=== PATIENT | female | born 1965 | race American Indian/Alaskan Native ===

== ENCOUNTER 2017-02-18 08:52 | Emergency (ER) | payer MEDICAID ==
[2017-02-18] MEDS ORDERED: NACL 0.9% 1000 ML 1,000 ML IV ONE (11:57)
[2017-02-18] MEDS ORDERED: PEPCID IV ONE (11:57)
[2017-02-18] MEDS ORDERED: BENADRYL IV ONE (11:57)
--- NOTE | 2017-02-18 12:05 | Emergency Department Report ---
- General Chief complaint: Skin Rash Stated complaint: INSECT BITE, RASH ON BODY Time Seen by Provider: 02/18/17 11:53 Source: patient Mode of arrival: Ambulatory Limitations: No Limitations - History of Present Illness Initial comments: This is a 51-year-old female nontoxic, well nourished in appearance, no acute signs of distress presents to the ED complaining of itching with rash with whelps. Patient stated last night she was outside and her brother's house and the back and visualized mosquitoes that bit her to the extremity but denies any rash or itching. Parents. They stated that night he developed severe rash and whelps. Patient patient had a similar episode last year and received medical treatment in the ED but isn't aware what she received that has subsided. Patient denies any shortness of breath or difficulty breathing. Denies drooling. Denies chest pain, shortness of breath, fever, chills, nausea, vomiting, numbness or tingling. Patient denies any joint swelling or joint redness. Patient denies any allergies. Past Medical history includes hypertension and asthma. Patient's daughter Tamera is currently present at bedside as the initial draw the patient home after discharge. MD complaint: rash, insect bite/sting -: Gradual, days(s) (1) Tetanus Up to Date: yes Location: generalized Severity: mild Severity scale (0 -10): 7 Quality: burning, other (itching) Consistency: constant Improves with: none Worsens with: none Context: none Associated symptoms: denies other symptoms Treatments Prior to Arrival: none - Related Data Home Medications Medication Instructions Recorded Confirmed Last Taken ALBUTEROL NEB's [Proventil 0.083%] 2.5 mg IH TID PRN 04/25/13 04/25/13 04/25/13 20:00 Albuterol Sulfate [Albuterol 0.63%] 0.63 mg IH TID PRN 04/25/13 04/25/13 20:00 Hydrochlorothiazide [Hctz] 12.5 mg PO QDAY 04/25/13 04/25/13 04/25/13 20:00 amLODIPine [Norvasc] 5 mg PO DAILY 04/25/13 04/25/13 04/25/13 20:00 Previous Rx's Medication Instructions Recorded Last Taken Type Guaifenesin/Codeine Phosphate 10 ml PO Q4-6H PRN #150 ml 04/26/13 Unknown Rx [Guaifenesin-Codeine Syrup] Hydrocodone Bit/Acetaminophen 1 each PO Q4-6H PRN #10 tablet 04/26/13 Unknown Rx [Lortab 5-500 Tablet] Ibuprofen [Motrin] 800 mg PO TID PRN #20 tablet 04/26/13 Unknown Rx oxyCODONE /ACETAMINOPHEN [Percocet 1 tab PO Q6HR PRN #20 tablet 06/22/14 Unknown Rx 5/325] ALBUTEROL Inhaler [Proair] 2 puff IH QID PRN #1 inhalation 12/08/15 Unknown Rx Prednisone [predniSONE 10 mg 10 mg PO .TAPER #1 tab.ds.pk 12/08/15 Unknown Rx (6-Day Pack, 21 Tabs)] diphenhydrAMINE [Benadryl CAP] 25 mg PO Q6HR PRN #20 capsule 02/18/17 Unknown Rx predniSONE [Deltasone] 20 mg PO BID #10 tab 02/18/17 Unknown Rx Allergies Allergy/AdvReac Type Severity Reaction Status Date / Time No Known Allergies Allergy Verified 06/21/14 18:01 Abscess Boil HPI - HPI Chief Complaint: Skin Rash Stated Complaint: INSECT BITE, RASH ON BODY Time Seen by Provider: 02/18/17 11:53 Home Medications: Home Medications Medication Instructions Recorded Confirmed Last Taken ALBUTEROL NEB's [Proventil 0.083%] 2.5 mg IH TID PRN 04/25/13 04/25/13 04/25/13 20:00 Albuterol Sulfate [Albuterol 0.63%] 0.63 mg IH TID PRN 04/25/13 04/25/13 20:00 Hydrochlorothiazide [Hctz] 12.5 mg PO QDAY 04/25/13 04/25/13 04/25/13 20:00 amLODIPine [Norvasc] 5 mg PO DAILY 04/25/13 04/25/13 04/25/13 20:00 Previous Rx's Medication Instructions Recorded Last Taken Type Guaifenesin/Codeine Phosphate 10 ml PO Q4-6H PRN #150 ml 04/26/13 Unknown Rx [Guaifenesin-Codeine Syrup] Hydrocodone Bit/Acetaminophen 1 each PO Q4-6H PRN #10 tablet 04/26/13 Unknown Rx [Lortab 5-500 Tablet] Ibuprofen [Motrin] 800 mg PO TID PRN #20 tablet 04/26/13 Unknown Rx oxyCODONE /ACETAMINOPHEN [Percocet 1 tab PO Q6HR PRN #20 tablet 06/22/14 Unknown Rx 5/325] ALBUTEROL Inhaler [Proair] 2 puff IH QID PRN #1 inhalation 12/08/15 Unknown Rx Prednisone [predniSONE 10 mg 10 mg PO .TAPER #1 tab.ds.pk 12/08/15 Unknown Rx (6-Day Pack, 21 Tabs)] diphenhydrAMINE [Benadryl CAP] 25 mg PO Q6HR PRN #20 capsule 02/18/17 Unknown Rx predniSONE [Deltasone] 20 mg PO BID #10 tab 02/18/17 Unknown Rx Allergies/Adverse Reactions: Allergies Allergy/AdvReac Type Severity Reaction Status Date / Time No Known Allergies Allergy Verified 06/21/14 18:01 ED Review of Systems ROS: Stated complaint: INSECT BITE, RASH ON BODY Other details as noted in HPI Constitutional: denies: chills, fever Eyes: denies: eye pain, eye discharge, vision change ENT: denies: ear pain, throat pain Respiratory: denies: cough, shortness of breath, wheezing Cardiovascular: denies: chest pain, palpitations Endocrine: no symptoms reported Gastrointestinal: denies: abdominal pain, nausea, diarrhea Genitourinary: denies: urgency, dysuria, discharge Musculoskeletal: denies: back pain, joint swelling, arthralgia Skin: rash, pruritus. denies: lesions Neurological: denies: headache, weakness, paresthesias Psychiatric: denies: anxiety, depression Hematological/Lymphatic: denies: easy bleeding, easy bruising ED Past Medical Hx - Past Medical History Previous Medical History?: Yes Hx Hypertension: Yes Hx Asthma: Yes - Surgical History Past Surgical History?: Yes Hx Appendectomy: Yes Additional Surgical History: back surgery ovarian cyst. PARTIAL HYSTERECTOMY - Social History Smoking Status: Never Smoker Substance Use Type: None - Medications Home Medications: Home Medications Medication Instructions Recorded Confirmed Last Taken Type ALBUTEROL NEB's [Proventil 0.083%] 2.5 mg IH TID PRN 04/25/13 04/25/13 04/25/13 20:00 History Albuterol Sulfate [Albuterol 0.63%] 0.63 mg IH TID PRN 04/25/13 04/25/13 20:00 History Hydrochlorothiazide [Hctz] 12.5 mg PO QDAY 04/25/13 04/25/13 04/25/13 20:00 History amLODIPine [Norvasc] 5 mg PO DAILY 04/25/13 04/25/13 04/25/13 20:00 History Guaifenesin/Codeine Phosphate 10 ml PO Q4-6H PRN #150 ml 04/26/13 Unknown Rx [Guaifenesin-Codeine Syrup] Hydrocodone Bit/Acetaminophen 1 each PO Q4-6H PRN #10 tablet 04/26/13 Unknown Rx [Lortab 5-500 Tablet] Ibuprofen [Motrin] 800 mg PO TID PRN #20 tablet 04/26/13 Unknown Rx oxyCODONE /ACETAMINOPHEN [Percocet 1 tab PO Q6HR PRN #20 tablet 06/22/14 Unknown Rx 5/325] ALBUTEROL Inhaler [Proair] 2 puff IH QID PRN #1 inhalation 12/08/15 Unknown Rx Prednisone [predniSONE 10 mg 10 mg PO .TAPER #1 tab.ds.pk 12/08/15 Unknown Rx (6-Day Pack, 21 Tabs)] diphenhydrAMINE [Benadryl CAP] 25 mg PO Q6HR PRN #20 capsule 02/18/17 Unknown Rx predniSONE [Deltasone] 20 mg PO BID #10 tab 02/18/17 Unknown Rx ED Physical Exam - General Limitations: No Limitations General appearance: alert, in no apparent distress - Head Head exam: Present: atraumatic, normocephalic, normal inspection - Eye Eye exam: Present: normal appearance, PERRL, EOMI. Absent: scleral icterus, conjunctival injection, nystagmus, periorbital swelling, periorbital tenderness Pupils: Present: normal accommodation - ENT ENT exam: Present: normal exam, normal orophraynx, mucous membranes moist, TM's normal bilaterally, normal external ear exam - Neck Neck exam: Present: normal inspection, full ROM. Absent: tenderness, meningismus, lymphadenopathy, thyromegaly - Respiratory Respiratory exam: Present: normal lung sounds bilaterally. Absent: respiratory distress, wheezes, rales, rhonchi, stridor, chest wall tenderness, accessory muscle use, decreased breath sounds, prolonged expiratory - Cardiovascular Cardiovascular Exam: Present: regular rate, normal rhythm, normal heart sounds. Absent: bradycardia, tachycardia, irregular rhythm, systolic murmur, diastolic murmur, rubs, gallop - GI/Abdominal GI/Abdominal exam: Present: soft, normal bowel sounds. Absent: distended, tenderness, guarding, rebound, rigid, diminished bowel sounds - Rectal Rectal exam: Present: deferred - Extremities Exam Extremities exam: Present: normal inspection, full ROM, normal capillary refill. Absent: tenderness, pedal edema, joint swelling, calf tenderness - Back Exam Back exam: Present: normal inspection, full ROM. Absent: tenderness, CVA tenderness (R), CVA tenderness (L), muscle spasm, paraspinal tenderness, vertebral tenderness, rash noted - Neurological Exam Neurological exam: Present: alert, oriented X3, CN II-XII intact, normal gait, reflexes normal - Psychiatric Psychiatric exam: Present: normal affect, normal mood - Skin Skin exam: Present: warm, dry, intact, normal color, rash, other (whelps with pruritus. No surrounding cellulitis, erythema, or swelling noted. Nontender to touch. No fluctuance or induration noted.). Absent: cyanosis, diaphoretic, erythema, urticaria, vesicles, petechiae, pallor, abrasion, ecchymosis ED Course Vital Signs 02/18/17 02/18/17 08:59 13:53 Temperature 98.4 F 98.6 F Pulse Rate 77 74 Respiratory 18 18 Rate Blood Pressure 177/119 174/107 O2 Sat by Pulse 100 100 Oximetry - Reevaluation(s) Reevaluation #1: 02/18/17 12:07 Patient is speaking full sentences with no signs of distress noted. ED Medical Decision Making - Medical Decision Making This is a 51-year-old female that presents with allergic reaction from mosquitoes. Patient received Solu-Medrol, Benadryl and Pepcid IV as well as normal saline 1000 ml in the ED. Patient stated itching has subsided. Patient was instructed not to operate any machinery after discharge due to the patient's /drowsiness of Benadryl. Patient's daughter Tamera is currently present at bedside as the initial draw the patient home after discharge. Patient was instructed to follow-up with a primary care doctor in 3-5 days or if symptoms worsen and continue return to emergency room as soon as possible possible. Patient was discharged with prednisone and Benadryl. Patient stated she took her blood pressure medication prior to arrival to the emergency room. Patient did state that she is currently taking her blood pressure medication and is followed up with a primary care doctor for this. Critical care attestation.: If time is entered above; I have spent that time in minutes in the direct care of this critically ill patient, excluding procedure time. ED Disposition Clinical Impression: Allergic reaction Qualifiers: Encounter type: initial encounter Qualified Code(s): T78.40XA - Allergy, unspecified, initial encounter Hypertension Qualifiers: Hypertension type: unspecified Qualified Code(s): I10 - Essential (primary) hypertension Disposition: - TO HOME OR SELFCARE Is pt being admited?: No Does the pt Need Aspirin: No Condition: Stable Instructions: Prednisone (By mouth), Diphenhydramine (By mouth), Urticaria (ED) , Allergies (ED), Hypertension (ED) Additional Instructions: follow-up with a primary care doctor in 3-5 days or if symptoms worsen and continue return to emergency room as soon as possible possible. Do not operate any machinery at discharge due to sedation/drowsiness of Benadryl that you received emergency room. Continue taking a blood pressure medication as directed by your primary care doctor and keep a daily diary of your blood pressure and presented here primary care doctor. Prescriptions: diphenhydrAMINE [Benadryl CAP] 25 mg PO Q6HR PRN #20 capsule PRN Reason: Itching predniSONE [Deltasone] 20 mg PO BID #10 tab Referrals: PRIMARY CAREMD [Primary Care Provider] - 3-5 Days LAN ABDI MD [Staff Physician] - 3-5 Days [facility] [Outside] - 3-5 Days [facility] [Outside] - 3-5 Days Forms: Work/School Release Form(ED)
[2017-02-18 13:56] VITALS: BP 174/107
== END 2017-02-18 14:42 | disposition home or self-care (01) ==
LOC: ED 08:52
DX: T78.40XA Allergy, unspecified, initial encounter (principal); I10 Essential (primary) hypertension; J45.909 Unspecified asthma, uncomplicated; Y92.9 Unspecified place or not applicable
CPT/HCPCS: 96361; 96374; 96375; 99282; J1200; J2930; J7030

== ENCOUNTER 2017-05-15 14:14 | Emergency (ER) | payer MEDICAID ==
--- NOTE | 2017-05-15 16:03 | XRay Report ---
FINAL REPORT EXAM: XR CHEST ROUTINE 2V HISTORY: Cough TECHNIQUE: 2 view examination of the chest PRIORS: None FINDINGS: Thoracic spine curvature with upper left and lower right apices. There is no visible pulmonary consolidation, pleural effusion, or pneumothorax. Cardiac silhouette size is normal without vascular congestion. No visible acute displaced fracture in the regional skeleton. IMPRESSION: No evidence of acute cardiopulmonary disease
[2017-05-15] MEDS ORDERED: TORADOL IM ONE (16:07)
--- NOTE | 2017-05-15 16:40 | Emergency Department Report ---
- General Chief Complaint: Upper Respiratory Infection Stated Complaint: FLU LIKE SYMPTOMS Time Seen by Provider: 05/15/17 15:58 Source: patient Mode of arrival: Ambulatory Limitations: No Limitations - History of Present Illness Initial Comments: 49 yo female with a past medical history of hypertension and asthma presents to the hospital complaining of persistent cough 3 weeks. The first week coughwas productive and seemed to be improving but then worsened again and is now nonproductive. Patient took a couple tablets of unknown left over antibiotic for previous respiratory infection without improvement. She denies wheezing, shortness of breath, or chest pain. Positive generalized body aches and upper back pain, intermittent chills, sweats, and fevers. Note was a hemoptysis, international travel, or known sick contacts. Patient presents with elevated BP and states she's been compliant with her meds. Patient did not receive a flu shot - Related Data Home Medications Medication Instructions Recorded Confirmed Last Taken ALBUTEROL NEB's [Proventil 0.083%] 2.5 mg IH TID PRN 04/25/13 04/25/13 04/25/13 20:00 Albuterol Sulfate [Albuterol 0.63%] 0.63 mg IH TID PRN 04/25/13 04/25/13 20:00 Hydrochlorothiazide [Hctz] 12.5 mg PO QDAY 04/25/13 04/25/13 04/25/13 20:00 amLODIPine [Norvasc] 5 mg PO DAILY 04/25/13 04/25/13 04/25/13 20:00 Previous Rx's Medication Instructions Recorded Last Taken Type Codeine Phosphate/Guaifenesin 10 ml PO Q4-6H PRN #150 ml 04/26/13 Unknown Rx [Guaifenesin-Codeine Syrup] Hydrocodone Bit/Acetaminophen 1 each PO Q4-6H PRN #10 tablet 04/26/13 Unknown Rx [Lortab 5-500 Tablet] Ibuprofen [Motrin] 800 mg PO TID PRN #20 tablet 04/26/13 Unknown Rx oxyCODONE /ACETAMINOPHEN [Percocet 1 tab PO Q6HR PRN #20 tablet 06/22/14 Unknown Rx 5/325] ALBUTEROL Inhaler [Proair] 2 puff IH QID PRN #1 inhalation 12/08/15 Unknown Rx Prednisone [predniSONE 10 mg 10 mg PO .TAPER #1 tab.ds.pk 12/08/15 Unknown Rx (6-Day Pack, 21 Tabs)] diphenhydrAMINE [Benadryl CAP] 25 mg PO Q6HR PRN #20 capsule 02/18/17 Unknown Rx predniSONE [Deltasone] 20 mg PO BID #10 tab 02/18/17 Unknown Rx Azithromycin [Zithromax Z-ZITA] 1 dose PO DAILY 5 Days tab 05/15/17 Unknown Rx Benzonatate [Tessalon Perles] 100 mg PO Q8HR #30 capsule 05/15/17 Unknown Rx Ibuprofen [Motrin] 600 mg PO Q8H PRN #30 tablet 05/15/17 Unknown Rx Allergies Allergy/AdvReac Type Severity Reaction Status Date / Time No Known Allergies Allergy Verified 06/21/14 18:01 ED Review of Systems ROS: Stated complaint: FLU LIKE SYMPTOMS Other details as noted in HPI Comment: All other systems reviewed and negative Other: Constitutional: As per HPI Eyes: No eye pain visual changes ENT: No ear pain or throat pain Neck: Denies pain Respiratory: As per HPI Cardiovascular: Denies chest pain, palpitations, syncope GI: Denies abdominal pain, nausea, vomiting, diarrhea : Denies dysuria Musculoskeletal: Muscular skeletal pain Skin: Denies rash, lesions, erythema Neurologic: Denies headache, numbness, weakness Psychiatric: Denies suicidal ideation, hallucinations ED Past Medical Hx - Past Medical History Hx Hypertension: Yes Hx Asthma: Yes - Surgical History Hx Appendectomy: Yes Additional Surgical History: back surgery ovarian cyst. PARTIAL HYSTERECTOMY - Social History Smoking Status: Never Smoker Substance Use Type: None - Medications Home Medications: Home Medications Medication Instructions Recorded Confirmed Last Taken Type ALBUTEROL NEB's [Proventil 0.083%] 2.5 mg IH TID PRN 04/25/13 04/25/13 04/25/13 20:00 History Albuterol Sulfate [Albuterol 0.63%] 0.63 mg IH TID PRN 04/25/13 04/25/13 20:00 History Hydrochlorothiazide [Hctz] 12.5 mg PO QDAY 04/25/13 04/25/13 04/25/13 20:00 History amLODIPine [Norvasc] 5 mg PO DAILY 04/25/13 04/25/1313 20:00 History Codeine Phosphate/Guaifenesin 10 ml PO Q4-6H PRN #150 ml 04/26/13 Unknown Rx [Guaifenesin-Codeine Syrup] Hydrocodone Bit/Acetaminophen 1 each PO Q4-6H PRN #10 tablet 04/26/13 Unknown Rx [Lortab 5-500 Tablet] Ibuprofen [Motrin] 800 mg PO TID PRN #20 tablet 04/26/13 Unknown Rx oxyCODONE /ACETAMINOPHEN [Percocet 1 tab PO Q6HR PRN #20 tablet 06/22/14 Unknown Rx 5/325] ALBUTEROL Inhaler [Proair] 2 puff IH QID PRN #1 inhalation 12/08/15 Unknown Rx Prednisone [predniSONE 10 mg 10 mg PO .TAPER #1 tab.ds.pk 12/08/15 Unknown Rx (6-Day Pack, 21 Tabs)] diphenhydrAMINE [Benadryl CAP] 25 mg PO Q6HR PRN #20 capsule 02/18/17 Unknown Rx predniSONE [Deltasone] 20 mg PO BID #10 tab 02/18/17 Unknown Rx Azithromycin [Zithromax Z-ZITA] 1 dose PO DAILY 5 Days tab 05/15/17 Unknown Rx Benzonatate [Tessalon Perles] 100 mg PO Q8HR #30 capsule 05/15/17 Unknown Rx Ibuprofen [Motrin] 600 mg PO Q8H PRN #30 tablet 05/15/17 Unknown Rx ED Physical Exam - General Limitations: No Limitations - Other Other exam information: General: No limitations, patient is alert in no acute distress Head exam: Atraumatic, normocephalic Eyes exam: Normal appearance, pupils equal reactive to light, extraocular movements intact ENT: Moist mucous membrane, normal oropharynx Neck exam: Normal inspection, full range of motion, no meningismus nontender Respiratory exam: Clear to auscultation bilateral, no wheezes, rales, crackles Cardiovascular: Normal rate and rhythm, normal heart sounds Abdomen: Soft, nondistended, and nontender, with normal bowel sounds, no rebound, or guarding Extremity: Full range of motion normal inspection no deformity Back: Normal Inspection, full range of motion, no tenderness Neurologic: Alert, oriented x3, cranial nerves intact, no motor or sensory deficit Psychiatric: normal affect, normal mood Skin: Warm, dry, intact ED Course Vital Signs 05/15/17 05/15/17 14:30 15:01 Temperature 97.7 F Pulse Rate 75 71 Respiratory 18 18 Rate Blood Pressure 163/117 Blood Pressure 147/107 [Right] O2 Sat by Pulse 99 99 Oximetry - Reevaluation(s) Reevaluation #1: 05/15/17 16:39 Blood pressure sitting down without treatment ED Medical Decision Making - Radiology Data Radiology results: report reviewed Chest x-ray: No acute findings - Medical Decision Making Patient discharge patient with treatment for acute bronchitis as atypical pneumonia due to persistent coughing and chills, and fever. Cough medicine will also be prescribed. Follow with PMD encouraged IM Toradol given in the ED for body aches - Differential Diagnosis pneumonia, bronchitis, viral syndrome Critical Care Time: No Critical care attestation.: If time is entered above; I have spent that time in minutes in the direct care of this critically ill patient, excluding procedure time. ED Disposition Clinical Impression: Acute bronchitis, Viral syndrome, Asymptomatic hypertension Disposition: TO HOME OR SELFCARE Is pt being admited?: No Does the pt Need Aspirin: No Condition: Stable Instructions: Acute Bronchitis (ED), Viral Syndrome (ED), Chronic Hypertension (ED) Additional Instructions: Take the the medication as prescribed. Follow-up with your primary care doctor. Return status worsen Prescriptions: Azithromycin [Zithromax Z-ZITA] 1 dose PO DAILY 5 Days tab Benzonatate [Tessalon Perles] 100 mg PO Q8HR #30 capsule Ibuprofen [Motrin] 600 mg PO Q8H PRN #30 tablet PRN Reason: Pain Referrals: PRIMARY CARE, [Primary Care Provider] - 3-5 Days Time of Disposition: 16:43
[2017-05-15 17:05] VITALS: BP 152/107
== END 2017-05-15 17:07 | disposition home or self-care (01) ==
LOC: ED 14:14
DX: J20.9 Acute bronchitis, unspecified (principal); B34.9 Viral infection, unspecified; I10 Essential (primary) hypertension; J45.909 Unspecified asthma, uncomplicated
CPT/HCPCS: 71020; 96372; 99283; J1885

== ENCOUNTER 2018-07-23 13:34 | Emergency (ER) | payer MEDICAID ==
--- NOTE | 2018-07-23 13:43 | Emergency Department Report ---
Chief Complaint: Abdominal Pain Stated Complaint: STOMACH PAIN/SOB - HPI History of Present Illness: EPIGASTRIC PAIN- RAD TO BACK; SOMETIMES GET SOB SAW PCP AND WAS TOLD TO TAKE ROLAIDS NO N/V/D NO BLOODY STOOL NORMAL BM LAST PM PMH GASTRIC U[facility]ERS H [facility]I ASTHMA PSH BACK APPY P HYSTERECTOMY- NO MENSES RX BP MED ALBUTEROL PRN PCP SEUN NELSON COMPLETED MSE screening note: Focused history and physical exam performed. Due to findings the following was ordered: ED Disposition for MSE Condition: Stable Instructions: Abdominal Pain (ED)
--- NOTE | 2018-07-23 14:38 | Emergency Department Report ---
ED Abdominal Pain HPI - General Chief Complaint: Abdominal Pain Stated Complaint: STOMACH PAIN/SOB Time Seen by Provider: 07/23/18 14:14 Source: patient, family Mode of arrival: Ambulatory Limitations: No Limitations - History of Present Illness Initial Comments: This is a 52-year-old female here reports that she is having a similar pain and some shortness of breath 3-4 weeks and denies any cough or cold symptoms. Denies fever. She did not have any shortness of breath today but is having some pressure into the epigastric area. She said pain started 4 weeks ago but is getting worse. She said he feels like her stomach his swollen and she is burp ing a lot. Her preference is 171/110 and she says she took her amlodipine and hydrochlorothiazide today. Pain is 8 out of 10 and burning epigastric area. Denies any back pain or urinary burning, frequency or urgency. She reports some nausea but no vomiting. Denies any headache or dizziness. Patient has previous hysterectomy and cyst removal from ovary in the past. She has a history of asthma and hypertension. Patient reported that she had EGD and a colonoscopy last year and they told her that everything was normal. MD Complaint: abdominal pain Onset/Timin -: week(s) Location: epigastric Radiation: none Migration to: no migration Severity: severe Severity scale (0 -10): 8 Quality: burning Consistency: intermittent Improves With: nothing Worsens With: eating Context: other (unknown) Associated Symptoms: nausea. denies: vomiting, diarrhea, fever, chills, constipation, dysuria, hematemesis, hematochezia, melena, hematuria, anorexia, syncope Treatments Prior to Arrival: antacids - Related Data LMP (females 10-50): other (partial hysterectomy) Home Medications Medication Instructions Recorded Confirmed Last Taken ALBUTEROL NEB's [Proventil 0.083%] 2.5 mg IH TID PRN 04/25/13 04/25/13 04/25/13 20:00 amLODIPine [Norvasc] 5 mg PO DAILY 04/25/13 04/25/13 04/25/13 20:00 hydroCHLOROthiazide [Hctz] 12.5 mg PO QDAY 04/25/13 04/25/13 04/25/13 20:00 Previous Rx's Medication Instructions Recorded Last Taken Type Omeprazole 40 mg PO QDAY 30 Days #30 07/23/18 Unknown Rx capsule. Ondansetron [Zofran ODT TAB] 8 mg PO Q8HR PRN #12 tab.roxanndis 07/23/18 Unknown Rx Allergies Allergy/AdvReac Type Severity Reaction Status Date / Time No Known Allergies Allergy Verified 07/23/18 13:41 ED Review of Systems ROS: Stated complaint: STOMACH PAIN/SOB Other details as noted in HPI Constitutional: denies: chills, fever ENT: denies: throat pain, congestion Respiratory: denies: cough, shortness of breath, wheezing Cardiovascular: denies: chest pain, palpitations, dyspnea on exertion, edema, syncope Gastrointestinal: abdominal pain, nausea. denies: vomiting, diarrhea, constipation, hematemesis, hematochezia Genitourinary: denies: urgency, dysuria, frequency, hematuria, discharge Musculoskeletal: denies: back pain, joint swelling, arthralgia, myalgia Skin: denies: rash Neurological: denies: headache ED Past Medical Hx - Past Medical History Previous Medical History?: Yes Hx Hypertension: Yes Hx Asthma: Yes - Surgical History Past Surgical History?: Yes Hx Appendectomy: Yes Additional Surgical History: back surgery ovarian cyst. PARTIAL HYSTERECTOMY - Family History Family history: hypertension - Social History Smoking Status: Never Smoker Substance Use Type: Alcohol - Medications Home Medications: Home Medications Medication Instructions Recorded Confirmed Last Taken Type ALBUTEROL NEB's [Proventil 0.083%] 2.5 mg IH TID PRN 04/25/13 04/25/13 04/25/13 20:00 History amLODIPine [Norvasc] 5 mg PO DAILY 04/25/13 04/25/13 04/25/13 20:00 History hydroCHLOROthiazide [Hctz] 12.5 mg PO QDAY 04/25/13 04/25/13 04/25/13 20:00 History Omeprazole 40 mg PO QDAY 30 Days #30 07/23/18 Unknown Rx capsule. Ondansetron [Zofran ODT TAB] 8 mg PO Q8HR PRN #12 tab.roxanndis 07/23/18 Unknown Rx ED Physical Exam - General Limitations: No Limitations General appearance: alert, in no apparent distress - Head Head exam: Present: atraumatic, normocephalic, normal inspection - Eye Eye exam: Present: normal appearance, PERRL, EOMI Pupils: Present: normal accommodation - ENT ENT exam: Present: normal exam, normal orophraynx, mucous membranes moist, TM's normal bilaterally, normal external ear exam - Neck Neck exam: Present: normal inspection, full ROM. Absent: tenderness, lymphadenopathy - Respiratory Respiratory exam: Present: normal lung sounds bilaterally. Absent: respiratory distress, chest wall tenderness - Cardiovascular Cardiovascular Exam: Present: regular rate, normal rhythm, normal heart sounds. Absent: systolic murmur, diastolic murmur - GI/Abdominal GI/Abdominal exam: Present: soft, distended, tenderness (mild tenderness ep igastric area.), normal bowel sounds, other (patient has abdominal scar with truncal obesity). Absent: guarding, rebound, rigid, organomegaly, mass, bruit, pulsatile mass, hernia ED Course Vital Signs 07/23/18 07/23/18 07/23/18 13:41 15:04 15:24 Temperature 97.6 F Pulse Rate 90 74 Respiratory 18 18 Rate Blood Pressure Blood Pressure 171/110 174/112 [Right] O2 Sat by Pulse 100 Oximetry 07/23/18 07/23/18 07/23/18 16:21 17:23 18:13 Temperature Pulse Rate 77 74 Respiratory Rate Blood Pressure 174/112 148/101 Blood Pressure 166/112 [Right] O2 Sat by Pulse Oximetry 07/23/18 18:19 Temperature Pulse Rate 75 Respiratory Rate Blood Pressure Blood Pressure 148/101 [Right] O2 Sat by Pulse Oximetry Vital Signs 07/23/18 07/23/18 07/23/18 13:41 15:04 15:24 Temperature 97.6 F Pulse Rate 90 74 Respiratory 18 18 Rate Blood Pressure Blood Pressure 171/110 174/112 [Right] O2 Sat by Pulse 100 Oximetry 07/23/18 07/23/18 07/23/18 16:21 17:23 18:13 Temperature Pulse Rate 77 74 Respiratory Rate Blood Pressure 174/112 148/101 Blood Pressure 166/112 [Right] O2 Sat by Pulse Oximetry - Reevaluation(s) Reevaluation #1: 07/23/18 15:59 Patient received 1 L of normal saline, morphine 4 mg IV for abdominal pain and Zofran 8 mg IV. I will reevaluate. Reevaluation #2: 07/23/18 17:10 She received hydralazine 20 mg when necessary emergency room and blood pressure is still elevated. Still awaiting CT scan. Recheck blood pressure Reevaluation #3: 07/23/18 18:13 Blood pressure is now 148/101 and I discussed the patient that she needs to go to her primary care physician but she does have one for management of blood pressure and she agrees. Pain is an nauseous control. ED Medical Decision Making - Lab Data Result diagrams: 07/23/18 14:41 07/23/18 17:09 Lab Results 07/23/18 07/23/18 07/23/18 Range/Units 13:44 14:41 14:41 WBC 7.3 (4.5-11.0) K/mm3 RBC 4.92 (3.65-5.03) M/mm3 Hgb 13.8 (10.1-14.3) gm/dl Hct 41.3 (30.3-42.9) % MCV 84 (79-97) fl MCH 28 (28-32) pg MCHC 34 (30-34) % RDW 14.2 (13.2-15.2) % Plt Count 239 (140-440) K/mm3 Lymph % (Auto) 39.3 H (13.4-35.0) % [place] % (Auto) 3.6 (0.0-7.3) % Eos % (Auto) 0.9 (0.0-4.3) % Baso % (Auto) 1.5 (0.0-1.8) % Lymph # 2.9 (1.2-5.4) K/mm3 [place] # 0.3 (0.0-0.8) K/mm3 Eos # 0.1 (0.0-0.4) K/mm3 Baso # 0.1 (0.0-0.1) K/mm3 Seg Neutrophils % 54.7 (40.0-70.0) % Seg Neutrophils # 4.0 (1.8-7.7) K/mm3 Sodium Potassium Chloride Carbon Dioxide Anion Gap BUN Creatinine Estimated GFR BUN/Creatinine Ratio Glucose Calcium Total Bilirubin 0.40 (0.1-1.2) mg/dL Direct Bilirubin < 0.2 (0-0.2) mg/dL Indirect Bilirubin 0.2 mg/dL AST 29 (5-40) units/L ALT 15 (7-56) units/L Alkaline Phosphatase 62 (35-129) units/L Total Protein 8.3 H (6.3-8.2) g/dL Albumin 4.4 (3.9-5) g/dL Albumin/Globulin Ratio 1.1 % Lipase (13-60) units/L Urine Color Yellow (Yellow) Urine Turbidity Slightly-cloudy (Clear) Urine pH 5.0 (5.0-7.0) Ur Specific Morrill 1.020 (1.003-1.030) Urine Protein <15 mg/dl (Negative) mg/dL Urine Glucose (UA) Neg (Negative) mg/dL Urine Ketones Neg (Negative) mg/dL Urine Blood Sm (Negative) Urine Nitrite Neg (Negative) Urine Bilirubin Neg (Negative) Urine Urobilinogen < 2.0 (<2.0) mg/dL Ur Leukocyte Esterase Neg (Negative) Urine WBC (Auto) 1.0 (0.0-6.0) /HPF Urine RBC (Auto) 3.0 (0.0-6.0) /HPF U Epithel Cells (Auto) 6.0 (0-13.0) /HPF Urine Bacteria (Auto) 1+ (Negative) /HPF Hyaline Casts 1 /LPF Urine Mucus Few /HPF 07/23/18 07/23/18 07/23/18 Range/Units 14:41 14:41 17:09 WBC (4.5-11.0) K/mm3 RBC (3.65-5.03) M/mm3 Hgb (10.1-14.3) gm/dl Hct (30.3-42.9) % MCV (79-97) fl MCH (28-32) pg MCHC (30-34) % RDW (13.2-15.2) % Plt Count (140-440) K/mm3 Lymph % (Auto) (13.4-35.0) % [place] % (Auto) (0.0-7.3) % Eos % (Auto) (0.0-4.3) % Baso % (Auto) (0.0-1.8) % Lymph # (1.2-5.4) K/mm3 [place] # (0.0-0.8) K/mm3 Eos # (0.0-0.4) K/mm3 Baso # (0.0-0.1) K/mm3 Seg Neutrophils % (40.0-70.0) % Seg Neutrophils # (1.8-7.7) K/mm3 Sodium TNR 141 Potassium TNR 4.1 Chloride TNR 104.1 Carbon Dioxide TNR 22 Anion Gap TNR 19 BUN TNR 13 Creatinine TNR 0.7 Estimated GFR TNR > 60 BUN/Creatinine Ratio TNR 19 Glucose TNR 91 Calcium TNR 9.1 Total Bilirubin (0.1-1.2) mg/dL Direct Bilirubin (0-0.2) mg/dL Indirect Bilirubin mg/dL AST (5-40) units/L ALT (7-56) units/L Alkaline Phosphatase (35-129) units/L Total Protein (6.3-8.2) g/dL Albumin (3.9-5) g/dL Albumin/Globulin Ratio % Lipase 67 H (13-60) units/L Urine Color (Yellow) Urine Turbidity (Clear) Urine pH (5.0-7.0) Ur Specific [place]rill (1.003-1.030) Urine Protein (Negative) mg/dL Urine Glucose (UA) (Negative) mg/dL Urine Ketones (Negative) mg/dL Urine Blood (Negative) Urine Nitrite (Negative) Urine Bilirubin (Negative) Urine Urobilinogen (<2.0) mg/dL Ur Leukocyte Esterase (Negative) Urine WBC (Auto) (0.0-6.0) /HPF Urine RBC (Auto) (0.0-6.0) /HPF U Epithel Cells (Auto) (0-13.0) /HPF Urine Bacteria (Auto) (Negative) /HPF Hyaline Casts /LPF Urine Mucus /HPF - Radiology Data Radiology results: report reviewed CT scan of the abdomen and pelvis with IV contrast dictated by radiologist and report reviewed by myself. Please see details below Findings [facility] [address] [place] [address] Cat Scan Report Signed Patient: СВЕТЛАНА DAVEY MR#: [id number] : 1965 Acct:[id number] Age/Sex: 52 / F ADM Date: 07/23/18 Loc: ED Attending Dr: Ordering Physician: LIZZETH BINGHAM Date of Service: 07/23/18 Procedure(s): CT abdomen pelvis w con Accession Number(s): [id number] cc: LIZZETH BINGHAM FINAL REPORT EXAM: CT ABDOMEN PELVIS W CON HISTORY: abominal pain NV TECHNIQUE: CT examination of the ABDOMEN after IV contrast CT examination of the PELVIS after IV contrast PRIORS: None. FINDINGS: Small benign calcified granuloma in left lung base. Degenerative change in the regional skeleton. No acute fracture. Lumbar spine curvature with mid left apex. There is suggestion of right curvature apex in the thoracic spine. Normal-appearing liver, gallbladder, adrenals, pancreas, and spleen. Normal caliber intact abdominal aorta and IVC. A nonspecific, smoothly marginated, low density, simple appearing left renal lesion is statistically most likely a cyst. Otherwise normal-appearing kidneys and visible ureteral segments. Intact abdominal wall without evidence of hernia. No retroperitoneal adenopathy. No evidence of mesenteric mass. Normal-appearing stomach and duodenum. No small bowel distention in the abdomen and pelvis. No pelvic free fluid. Normal-appearing urinary bladder, adnexae, and rectum. Uterus not visualized which may be surgically absent. Slight sigmoid diverticulosis without evidence of acute inflammation. No gross ascites, free air, or colonic distention. Normal-appearing cecum and terminal ileum. Appendix not visualized. No definite pericecal inflammation. IMPRESSION: Slight sigmoid diverticulosis without evidence of acute inflammation Nonvisualized uterus and appendix may be surgically absent Transcribed By: CM Dictated By: AMY THURSTON MD Electronically Authenticated By: AMY THURSTON MD Signed Date/Time: 07/23/181715 DD/ 14 TD/TT: 07/23/181714 - Medical Decision Making This is a 52-year-old female here with abdominal pain on and off for 4 weeks. She said yesterday. She is burping a lot. Physical findings were truncal obesity with mild distention of abdomen and mild tenderness the epigastric area. CT scan of the abdomen and pelvis with IV contrast. Radiologist for myself findings. No acute findings and she has diverticulosis, mild in sigmoid colon. Patient had CBC which is stable, hepatic panel and BMP show stable. Lipase is 67 which is mildly elevated. Urinalysis is stable was mention of 1+ bacteria but no other findings. I discussed findings with patient along with diagnosis and treatment plan she was nondistended. Patient received 1 L of fluid, Zofran 8 mg IV and morphine 4 mg IV which she said her pain is better. She also received hydralazine 20 mg by mouth for elevated blood pressure her blood pressure was better although still elevated she is on blood pressure medication and she does have a primary care doctor and she has follow-u p regarding her blood pressure. Patient referred to [place] [facility] and primary care doctor and given a prescription for omeprazole for dyspepsia and Zofran. Discharged home with her family in stable condition. - Differential Diagnosis GBD, pancreatitis, colitis, liver disease, enteritis, dyspepsia, hernia Critical care attestation.: If time is entered above; I have spent that time in minutes in the direct care of this critically ill patient, excluding procedure time. ED Disposition Clinical Impression: Elevated blood pressure reading with diagnosis of hypertension, Dyspepsia, Diverticulosis of colon, Renal cyst, left Abdominal pain Qualifiers: Abdominal location: epigastric Qualified Code(s): R10.13 - Epigastric pain Disposition: TO HOME OR SELFCARE Is pt being admited?: No Does the pt Need Aspirin: No Condition: Stable Instructions: Diverticulosis (ED), Diverticulosis Diet (ED), Abdominal Pain (ED), DASH Eating Plan (ED), Hypertension (ED) Additional Instructions: Please follow up with research/program director and her primary care doctor in 2-3 days. He will need management of your pressure and also abdominal problems. There is mention of a left renal cyst on CT scan so you need to follow up with your primary care doctor for possible referral or repeat CT scan later date. Take blood pressure daily and record indicates to primary care physician with you Take omeprazole for acid reflux and Zofran for nausea. If your condition worsens, return to the emergency room Please see discharge instructions on diverticulosis and also diverticulosis diet Prescriptions: Omeprazole 40 mg PO QDAY 30 Days #30 capsule. Ondansetron [Zofran ODT TAB] 8 mg PO Q8HR PRN #12 tab.rapdis PRN Reason: Nausea And Vomiting Referrals: Your, primary care physician [Other] - 2-3 Days [facility] [Provider Group] - 2-3 Days BRIT SERNA MD [Primary Care Provider] - 2-3 Days Forms: Work/School Release Form(ED)
[2018-07-23] MEDS ORDERED: APRESOLINE IV ONE (14:39)
[2018-07-23] MEDS ORDERED: MORPHINE IV ONE (14:39)
[2018-07-23] MEDS ORDERED: ZOFRAN IV ONE (14:39)
[2018-07-23] MEDS ORDERED: NACL 0.9% 1000 ML 1,000 ML IV ONE (14:39)
[2018-07-23 14:40] LABS: Bacteria,Urine 1+ /HPF (Negative); Bilirubin,Urine NEG (Negative); Blood,Urine SM (Negative); Color,Urine Yellow (Yellow); Hyaline Casts,Urine 1 /LPF; Mucus,Urine FEW /HPF; Protein,Urine <15 mg/dL mg/dL (Negative); Urobilinogen,Urine < 2.0 mg/dL (<2.0)
[2018-07-23 15:07] LABS: Basophils # (Auto) 0.1 K/mm3 (0.0-0.1); Basophils % (Auto) 1.5 % (0.0-1.8); Eosinophils # (Auto) 0.1 K/mm3 (0.0-0.4); Eosinophils % (Auto) 0.9 % (0.0-4.3); Hematocrit 41.3 % (30.3-42.9); Hemoglobin 13.8 gm/dl (10.1-14.3); Lymphocytes # (Auto) 2.9 K/mm3 (1.2-5.4); Lymphocytes % (Auto) 39.3 % (13.4-35.0); Mean Corpuscular HGB Conc 34 % (30-34); Mean Corpuscular Volume 84 fl (79-97); Monocytes # (Auto) 0.3 K/mm3 (0.0-0.8); Monocytes % (Auto) 3.6 % (0.0-7.3); Platelet Count 239 K/mm3 (140-440); Red Blood Count 4.92 M/mm3 (3.65-5.03); Red Cell Distribution Width 14.2 % (13.2-15.2)
[2018-07-23 15:28] LABS: Alanine Aminotransferase 15 units/L (7-56); Albumin 4.4 g/dL (3.9-5)
[2018-07-23 15:31] LABS: Bilirubin,Direct < 0.2 mg/dL (0-0.2)
[2018-07-23 15:50] LABS: Blood Urea Nitrogen TNR mg/dL (7-17)
[2018-07-23 15:51] LABS: BUN/Creatinine Ratio TNR
[2018-07-23 15:52] LABS: Calcium TNR mg/dL (8.4-10.2); Hemolysis Index TNR
[2018-07-23] MEDS ORDERED: APRESOLINE PO ONE (16:00)
--- NOTE | 2018-07-23 17:16 | Cat Scan Report ---
FINAL REPORT EXAM: CT ABDOMEN PELVIS W CON HISTORY: abominal pain NV TECHNIQUE: CT examination of the ABDOMEN after IV contrast CT examination of the PELVIS after IV contrast PRIORS: None. FINDINGS: Small benign calcified granuloma in left lung base. Degenerative change in the regional skeleton. No acute fracture. Lumbar spine curvature with mid left apex. There is suggestion of right curvature apex in the thoracic spine. Normal-appearing liver, gallbladder, adrenals, pancreas, and spleen. Normal caliber intact abdominal aorta and IVC. A nonspecific, smoothly marginated, low density, simple appearing left renal lesion is statistically most likely a cyst. Otherwise normal-appearing kidneys and visible ureteral segments. Intact abdominal wall without evidence of hernia. No retroperitoneal adenopathy. No evidence of mesen teric mass. Normal-appearing stomach and duodenum. No small bowel distention in the abdomen and pelvi s. No pelvic free fluid. Normal-appearing urinary bladder, adnexae, and rectum. Uterus not visualized wh ich may be surgically absent. Slight sigmoid diverticulosis without evidence of acute inflammation. No gross ascites, free air, or colonic distention. Normal-appearing cecum and terminal ileum. Appendi x not visualized. No definite pericecal inflammation. IMPRESSION: Slight sigmoid diverticulosis without evidence of acute inflammation Nonvisualized uterus and appendix may be surgically absent
[2018-07-23] MEDS ORDERED: CATAPRES PO ONE (18:08)
[2018-07-23 18:14] VITALS: BP 148/101
[2018-07-23 18:33] LABS: BUN/Creatinine Ratio 19; Blood Urea Nitrogen 13 mg/dL (7-17); Calcium 9.1 mg/dL (8.4-10.2); Hemolysis Index 11
== END 2018-07-23 19:02 | disposition home or self-care (01) ==
LOC: ED 13:34
DX: K57.30 Diverticulosis of large intestine without perforation or abscess without bleeding (principal); N28.1 Cyst of kidney, acquired; R06.02 Shortness of breath; I10 Essential (primary) hypertension; J45.909 Unspecified asthma, uncomplicated; Z90.49 Acquired absence of other specified parts of digestive tract; Z90.710 Acquired absence of both cervix and uterus; Z79.899 Other long term (current) drug therapy
CPT/HCPCS: 36415; 74177; 80048; 80076; 81001; 83690; 85025; 96374; 96375; 99284; J2270; J2405; J7030; Q9967

== ENCOUNTER 2018-07-27 23:47 | Emergency (ER) | payer MEDICAID ==
[2018-07-28] MEDS ORDERED: CATAPRES PO ONE (00:41)
[2018-07-28] MEDS ORDERED: CATAPRES ONE (00:45)
[2018-07-28 02:58] VITALS: BP 174/113
[2018-07-28] MEDS ORDERED: DUONEB *Not for PRN Use IH ONE (03:04)
[2018-07-28] MEDS ORDERED: SOLU-Medrol IV STA (03:04)
[2018-07-28] MEDS ORDERED: BENADRYL IV STA (03:04)
--- NOTE | 2018-07-28 04:23 | Emergency Department Report ---
ED Asthma HPI - General Chief Complaint: Dyspnea/Respdistress Stated Complaint: ASTHMA Time Seen by Provider: 07/28/18 03:03 Source: patient Mode of arrival: Ambulatory Limitations: No Limitations - History of Present Illness Initial Comments: 52-year-old female with a history of asthma exacerbation department complaining of shortness of breath, wheezing and having an asthma exacerbation today. He has not quite been responding to her palm. She. She utilizes Advair, pro-air and oral prednisone and presents requesting a IV shot of still reports to help her symptomology. Denies any fever, chills, sweats. Does have occasional mucous production. No nausea, vomiting, no chest pain, palpitations, headache. MD Complaint: wheezing -: Gradual Severity: mild Context: none known Associated Symptoms: productive cough Treatments Prior to Arrival: inhaled bronchodilator - Related Data Current Asthma Therapy: none Home Medications Medication Instructions Recorded Confirmed Last Taken ALBUTEROL NEB's [Proventil 0.083%] 2.5 mg IH TID PRN 04/25/13 04/25/13 04/25/13 20:00 amLODIPine [Norvasc] 5 mg PO DAILY 04/25/13 04/25/13 04/25/13 20:00 hydroCHLOROthiazide [Hctz] 12.5 mg PO QDAY 04/25/13 04/25/13 04/25/13 20:00 Previous Rx's Medication Instructions Recorded Last Taken Type Omeprazole 40 mg PO QDAY 30 Days #30 07/23/18 Unknown Rx capsule. Ondansetron [Zofran ODT TAB] 8 mg PO Q8HR PRN #12 tab.rapdis 07/23/18 Unknown Rx ALBUTEROL Inhaler (OR & NICU) 1 puff IH Q4-6H PRN #1 inha 07/28/18 Unknown Rx [ProAir HFA Inhaler] Montelukast [Singulair] 10 mg PO QPM #14 tablet 07/28/18 Unknown Rx predniSONE [Deltasone] 50 mg PO QDAY #5 tab 07/28/18 Unknown Rx Allergies Allergy/AdvReac Type Severity Reaction Status Date / Time No Known Allergies Allergy Verified 07/23/18 13:41 ED Review of Systems ROS: Stated complaint: ASTHMA Other details as noted in HPI Constitutional: denies: chills, fever Eyes: denies: eye pain, eye discharge, vision change ENT: denies: ear pain, throat pain Respiratory: wheezing. denies: cough, shortness of breath Cardiovascular: denies: chest pain, palpitations Endocrine: no symptoms reported Gastrointestinal: denies: abdominal pain, nausea, diarrhea Genitourinary: denies: urgency, dysuria, discharge Musculoskeletal: denies: back pain, joint swelling, arthralgia Skin: denies: rash, lesions Neurological: denies: headache, weakness, paresthesias Psychiatric: denies: anxiety, depression Hematological/Lymphatic: denies: easy bleeding, easy bruising ED Past Medical Hx - Past Medical History Hx Hypertension: Yes Hx GERD: Yes Hx Asthma: Yes - Surgical History Hx Appendectomy: Yes Additional Surgical History: back surgery ovarian cyst. PARTIAL HYSTERECTOMY - Social History Smoking Status: Never Smoker Substance Use Type: None - Medications Home Medications: Home Medications Medication Instructions Recorded Confirmed Last Taken Type ALBUTEROL NEB's [Proventil 0.083%] 2.5 mg IH TID PRN 04/25/13 04/25/13 04/25/13 20:00 History amLODIPine [Norvasc] 5 mg PO DAILY 04/25/13 04/25/13 04/25/13 20:00 History hydroCHLOROthiazide [Hctz] 12.5 mg PO QDAY 04/25/13 04/25/13 04/25/13 20:00 History Omeprazole 40 mg PO QDAY 30 Days #30 07/23/18 Unknown Rx capsule. Ondansetron [Zofran ODT TAB] 8 mg PO Q8HR PRN #12 tab.rapdis 07/23/18 Unknown Rx ALBUTEROL Inhaler (OR & NICU) 1 puff IH Q4-6H PRN #1 inha 07/28/18 Unknown Rx [ProAir HFA Inhaler] Montelukast [Singulair] 10 mg PO QPM #14 tablet 07/28/18 Unknown Rx predniSONE [Deltasone] 50 mg PO QDAY #5 tab 07/28/18 Unknown Rx ED Physical Exam - General Limitations: No Limitations General appearance: alert, in no apparent distress, appears intoxicated - Head Head exam: Present: atraumatic, normocephalic - Eye Eye exam: Present: normal appearance, PERRL, EOMI. Absent: scleral icterus, conjunctival injection, periorbital swelling, periorbital tenderness - ENT ENT exam: Present: normal exam, mucous membranes moist - Neck Neck exam: Present: normal inspection, full ROM - Respiratory Respiratory exam: Present: normal lung sounds bilaterally, wheezes, decreased breath sounds. Absent: respiratory distress, rales, chest wall tenderness, accessory muscle use - Cardiovascular Cardiovascular Exam: Present: regular rate, normal rhythm. Absent: tachycardia, systolic murmur, diastolic murmur, rubs, gallop - GI/Abdominal GI/Abdominal exam: Present: soft, normal bowel sounds. Absent: guarding, hyperactive bowel sounds, hypoactive bowel sounds, organomegaly, mass, pulsatile mass - Extremities Exam Extremities exam: Present: normal inspection - Back Exam Back exam: Present: normal inspection - Neurological Exam Neurological exam: Present: alert, oriented X3 - Psychiatric Psychiatric exam: Present: normal affect, normal mood - Skin Skin exam: Present: warm, dry, intact, normal color. Absent: rash ED Course Vital Signs 07/28/18 07/28/18 07/28/18 00:24 00:44 02:57 Temperature 98.6 F Pulse Rate 100 H 100 H 90 Respiratory 17 Rate Blood Pressure 187/124 187/124 Blood Pressure 174/113 [Right] O2 Sat by Pulse 100 Oximetry ED Medical Decision Making - Medical Decision Making Patient feels much better after the breathing treatment, steroids and Benadryl. 6. Some albuterol refills to go home. Critical care attestation.: If time is entered above; I have spent that time in minutes in the direct care of this critically ill patient, excluding procedure time. ED Disposition Clinical Impression: Asthma flare Disposition: DC-01 TO HOME OR SELFCARE Is pt being admited?: No Does the pt Need Aspirin: No Condition: Stable Instructions: Asthma (ED) Referrals: RAQUEL TAM MD [Primary Care Provider] - 3-5 Days
== END 2018-07-28 04:39 | disposition home or self-care (01) ==
LOC: ED 23:47
DX: J45.909 Unspecified asthma, uncomplicated (principal)
CPT/HCPCS: 94640; 96374; 96375; 99283; J1200; J2930

== ENCOUNTER 2019-02-06 09:56 | Emergency (ER) | payer MEDICAID ==
[2019-02-06 10:58] LABS: Basophils % (Auto) 0.6 % (0.0-1.8); Eosinophils # (Auto) 0.1 K/mm3 (0.0-0.4); Eosinophils % (Auto) 1.1 % (0.0-4.3); Hematocrit 41.5 % (30.3-42.9); Hemoglobin 13.8 gm/dl (10.1-14.3); Lymphocytes % (Auto) 41.3 % (13.4-35.0); Mean Corpuscular HGB Conc 33 % (30-34); Mean Corpuscular Volume 84 fl (79-97); Monocytes # (Auto) 0.4 K/mm3 (0.0-0.8); Monocytes % (Auto) 4.9 % (0.0-7.3); Platelet Count 249 K/mm3 (140-440); Red Blood Count 4.95 M/mm3 (3.65-5.03)
[2019-02-06 11:17] LABS: Alanine Aminotransferase 16 units/L (7-56); Albumin 4.3 g/dL (3.9-5); BUN/Creatinine Ratio 17; Blood Urea Nitrogen 15 mg/dL (7-17); Calcium 9.4 mg/dL (8.4-10.2); Hemolysis Index 3
[2019-02-06 12:37] LABS: Bacteria,Urine 1+ /HPF (Negative); Bilirubin,Urine NEG (Negative); Blood,Urine NEG (Negative); Color,Urine Yellow (Yellow); Mucus,Urine 1+ /HPF; Protein,Urine <15 mg/dL mg/dL (Negative); Urobilinogen,Urine < 2.0 mg/dL (<2.0)
--- NOTE | 2019-02-06 13:13 | Emergency Department Report ---
ED Abdominal Pain HPI - General Chief Complaint: Abdominal Pain Stated Complaint: STOMACH PAIN Time Seen by Provider: 02/06/19 11:21 Source: patient Mode of arrival: Ambulatory Limitations: No Limitations - History of Present Illness Initial Comments: This is a 53-year-old -[place] female who presents to the emergency room with right upper quadrant pain intermittently for 6 months. Past medical history of hypertension, GERD, and asthma. Patient states she is seen in her primary care doctor who recently diagnosed her with irritable bowel syndrome. She was recently started on linzess with minimal improvement of symptoms. Patient reports pain is worse after she eats lettuce or meat. Denies change in urination or bowel, fever, nausea, vomiting, or chest pain. MD Complaint: abdominal pain Onset/Timin -: month(s) Location: RUQ Radiation: none Migration to: no migration Severity: moderate Severity scale (0 -10): 8 Quality: aching, sharp Consistency: intermittent Improves With: nothing Worsens With: eating Associated Symptoms: denies other symptoms Treatments Prior to Arrival: NSAIDs, prescription analgesics - Related Data Home Medications Medication Instructions Recorded Confirmed Last Taken ALBUTEROL NEB's [Proventil 0.083%] 2.5 mg IH TID PRN 04/25/13 04/25/13 04/25/13 20:00 amLODIPine [Norvasc] 5 mg PO DAILY 04/25/13 04/25/13 04/25/13 20:00 hydroCHLOROthiazide [Hctz] 12.5 mg PO QDAY 04/25/13 04/25/13 04/25/13 20:00 Previous Rx's Medication Instructions Recorded Last Taken Type Omeprazole 40 mg PO QDAY 30 Days #30 07/23/18 Unknown Rx capsule. Ondansetron [Zofran ODT TAB] 8 mg PO Q8HR PRN #12 tab.rapdis 07/23/18 Unknown Rx ALBUTEROL Inhaler (OR & NICU) 1 puff IH Q4-6H PRN #1 inha 07/28/18 Unknown Rx [ProAir HFA Inhaler] Montelukast [Singulair] 10 mg PO QPM #14 tablet 07/28/18 Unknown Rx predniSONE [Deltasone] 50 mg PO QDAY #5 tab 07/28/18 Unknown Rx Allergies Allergy/AdvReac Type Severity Reaction Status Date / Time No Known Allergies Allergy Verified 07/23/18 13:41 ED Review of Systems ROS: Stated complaint: STOMACH PAIN Other details as noted in HPI Constitutional: denies: chills, fever Respiratory: denies: cough, shortness of breath, wheezing Cardiovascular: denies: chest pain, palpitations Gastrointestinal: abdominal pain. denies: nausea, vomiting, diarrhea, constipation, hematochezia Genitourinary: denies: urgency, dysuria, discharge Musculoskeletal: denies: back pain, joint swelling, arthralgia Skin: denies: rash, lesions Neurological: denies: headache, weakness, paresthesias Psychiatric: denies: anxiety, depression ED Past Medical Hx - Past Medical History Previous Medical History?: Yes Hx Hypertension: Yes Hx GERD: Yes Hx Asthma: Yes - Surgical History Hx Appendectomy: Yes Additional Surgical History: back surgery ovarian cyst. PARTIAL HYSTERECTOMY - Social History Smoking Status: Never Smoker Substance Use Type: Alcohol - Medications Home Medications: Home Medications Medication Instructions Recorded Confirmed Last Taken Type ALBUTEROL NEB's [Proventil 0.083%] 2.5 mg IH TID PRN 04/25/13 04/25/13 04/25/13 20:00 History amLODIPine [Norvasc] 5 mg PO DAILY 04/25/13 04/25/13 04/25/13 20:00 History hydroCHLOROthiazide [Hctz] 12.5 mg PO QDAY 04/25/13 04/25/13 04/25/13 20:00 History Omeprazole 40 mg PO QDAY 30 Days #30 07/23/18 Unknown Rx capsule. Ondansetron [Zofran ODT TAB] 8 mg PO Q8HR PRN #12 tab.rapdis 07/23/18 Unknown Rx ALBUTEROL Inhaler (OR & NICU) 1 puff IH Q4-6H PRN #1 inha 07/28/18 Unknown Rx [ProAir HFA Inhaler] Montelukast [Singulair] 10 mg PO QPM #14 tablet 07/28/18 Unknown Rx predniSONE [Deltasone] 50 mg PO QDAY #5 tab 07/28/18 Unknown Rx ED Physical Exam - General Limitations: No Limitations General appearance: alert, in no apparent distress, obese - Respiratory Respiratory exam: Present: normal lung sounds bilaterally. Absent: respiratory distress - Cardiovascular Cardiovascular Exam: Present: regular rate, normal rhythm. Absent: systolic murmur, diastolic murmur, rubs, gallop - GI/Abdominal GI/Abdominal exam: Present: soft, tenderness (right upper quadrant), normal bowel sounds. Absent: distended, guarding, rebound, rigid, organomegaly - Back Exam Back exam: Absent: CVA tenderness (R), CVA tenderness (L) - Neurological Exam Neurological exam: Present: alert, oriented X3, normal gait - Psychiatric Psychiatric exam: Present: normal affect, normal mood - Skin Skin exam: Present: warm, dry, intact, normal color. Absent: rash ED Course Vital Signs 02/06/19 02/06/19 02/06/19 10:27 14:36 14:43 Temperature 97.9 F 97.7 F Pulse Rate 75 79 79 Respiratory 18 18 Rate Blood Pressure 181/118 181/118 Blood Pressure 188/106 [Right] O2 Sat by Pulse 100 98 Oximetry ED Medical Decision Making - Lab Data Result diagrams: 02/06/19 10:37 02/06/19 10:37 Lab Results 02/06/19 02/06/19 02/06/19 Range/Units 10:37 10:37 11:25 WBC 7.4 (4.5-11.0) K/mm3 RBC 4.95 (3.65-5.03) M/mm3 Hgb 13.8 (10.1-14.3) gm/dl Hct 41.5 (30.3-42.9) % MCV 84 (79-97) fl MCH 28 (28-32) pg MCHC 33 (30-34) % RDW 14.0 (13.2-15.2) % Plt Count 249 (140-440) K/mm3 Lymph % (Auto) 41.3 H (13.4-35.0) % [place] % (Auto) 4.9 (0.0-7.3) % Eos % (Auto) 1.1 (0.0-4.3) % Baso % (Auto) 0.6 (0.0-1.8) % Lymph # 3.0 (1.2-5.4) K/mm3 [place] # 0.4 (0.0-0.8) K/mm3 Eos # 0.1 (0.0-0.4) K/mm3 Baso # 0.0 (0.0-0.1) K/mm3 Seg Neutrophils % 52.1 (40.0-70.0) % Seg Neutrophils # 3.8 (1.8-7.7) K/mm3 Sodium 144 (137-145) mmol/L Potassium 4.3 (3.6-5.0) mmol/L Chloride 102.8 (98-107) mmol/L Carbon Dioxide 31 H (22-30) mmol/L Anion Gap 15 mmol/L BUN 15 (7-17) mg/dL Creatinine 0.9 (0.7-1.2) mg/dL Estimated GFR > 60 ml/min BUN/Creatinine Ratio 17 % Glucose 110 H (65-100) mg/dL Calcium 9.4 (8.4-10.2) mg/dL Total Bilirubin 0.30 (0.1-1.2) mg/dL AST 17 (5-40) units/L ALT 16 (7-56) units/L Alkaline Phosphatase 65 (35-129) units/L Total Protein 7.9 (6.3-8.2) g/dL Albumin 4.3 (3.9-5) g/dL Albumin/Globulin Ratio 1.2 % Urine Color Yellow (Yellow) Urine Turbidity Slightly-cloudy (Clear) Urine pH 6.0 (5.0-7.0) Ur Specific [place] 1.024 (1.003-1.030) Urine Protein <15 mg/dl (Negative) mg/dL Urine Glucose (UA) Neg (Negative) mg/dL Urine Ketones Neg (Negative) mg/dL Urine Blood Neg (Negative) Urine Nitrite Neg (Negative) Urine Bilirubin Neg (Negative) Urine Urobilinogen < 2.0 (<2.0) mg/dL Ur Leukocyte Esterase Neg (Negative) Urine WBC (Auto) 1.0 (0.0-6.0) /HPF Urine RBC (Auto) 6.0 (0.0-6.0) /HPF U Epithel Cells (Auto) 9.0 (0-13.0) /HPF Urine Bacteria (Auto) 1+ (Negative) /HPF Urine Mucus 1+ /HPF - Radiology Data Radiology results: report reviewed LIMITED RUQ ABDOMINAL ULTRASOUND INDICATION: Right upper quadrant pain for 6 months. COMPARISON: No relevant prior imaging study available. FINDINGS: Pancreas: Visualized portions show no significant abnormality. Abdominal Aorta: No significant abnormality. IVC: No significant abnormality. Liver: The liver measures 15.1 cm in length. No significant abnormality. Normal hepatopedal blood flow in the main portal vein. Gallbladder: No significant abnormality. Bile ducts: No significant abnormality. Common bile duct measures 2.1 mm. Right kidney: No significant abnormality visualized.. Free fluid: None. Additional Findings: None. IMPRESSION: Unremarkable right upper quadrant ultrasound.. - Medical Decision Making Patient was examined by me. Patient is nontoxic appearing and stable. Blood pressure elevated. Past medical history of HTN, GERD, & asthma. Patient didn't take blood pressure medication today and is asymptomatic. Obtained labs and US of RUQ. Labs are unremarkable and ultrasound remarkable of right upper quadrant. Given amlodipine and hydrochlorothiazide while in the ER. Pain may be related to IBS due to pain is only after meals. Currently patient denies change is stool or vomiting. Patient informed of results. Instructed to continue taking linzess prescribed by PCP. Follow up with PCP or gastroenterol tommy. Patient discharged home in stable condition. Critical care attestation.: If time is entered above; I have spent that time in minutes in the direct care of this critically ill patient, excluding procedure time. ED Disposition Clinical Impression: Right upper quadrant abdominal pain, Asymptomatic hypertension Irritable bowel syndrome (IBS) Qualifiers: Irritable bowel syndrome type: without diarrhea Qualified Code(s): K58.9 - Irritable bowel syndrome without diarrhea Disposition: DC-01 TO HOME OR SELFCARE Is pt being admited?: No Does the pt Need Aspirin: No Condition: Stable Instructions: Irritable Bowel Syndrome (ED), Abdominal Pain (ED), Hypertension (ED) Additional Instructions: Continue taking current medication for IBS as prescribed by your primary care doctor. 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 Referrals: [facility] [Provider Group] - 3-5 Days [facility] [Provider Group] - 3-5 Days Forms: Work/School Release Form(ED) Time of Disposition: 15:06
--- NOTE | 2019-02-06 14:09 | Ultrasound Report ---
LIMITED RUQ ABDOMINAL ULTRASOUND INDICATION: Right upper quadrant pain for 6 months. COMPARISON: No relevant prior imaging study available. FINDINGS: Pancreas: Visualized portions show no significant abnormality. Abdominal Aorta: No significant abnormality. IVC: No significant abnormality. Liver: The liver measures 15.1 cm in length. No significant abnormality. Normal hepatopedal blood fl ow in the main portal vein. Gallbladder: No significant abnormality. Bile ducts: No significant abnormality. Common bile duct measures 2.1 mm. Right kidney: No significant abnormality visualized.. Free fluid: None. Additional Findings: None. IMPRESSION: Unremarkable right upper quadrant ultrasound.. Signer Name: Tuan Elias Jr, MD Signed: 02/06/2019 2:04 PM Workstation Name: [id number]
[2019-02-06] MEDS ORDERED: HCTZ PO ONE (14:27)
[2019-02-06] MEDS ORDERED: NORVASC PO ONE (14:27)
[2019-02-06 15:44] VITALS: BP 160/100
== END 2019-02-06 15:43 | disposition home or self-care (01) ==
LOC: ED 09:56
DX: K58.9 Irritable bowel syndrome, unspecified (principal); I10 Essential (primary) hypertension; K21.9 Gastro-esophageal reflux disease without esophagitis; J45.909 Unspecified asthma, uncomplicated; Z79.899 Other long term (current) drug therapy; Z90.711 Acquired absence of uterus with remaining cervical stump; Z98.890 Other specified postprocedural states
CPT/HCPCS: 36415; 76705; 80053; 81001; 85025; 99284

== ENCOUNTER 2019-05-18 11:24 | Outpatient (CLI) | payer MEDICAID ==
--- NOTE | 2019-05-18 15:18 | Mammography Report ---
DIGITAL BILATERAL DIAGNOSTIC MAMMOGRAM WITH CAD, 05/18/2019 INDICATION: RIGHT BREAST PAIN TECHNIQUE: Digital bilateral mammographic imaging was performed. This examination was interpreted with the benefit of Computer-aided Detection analysis. COMPARISON: None available. However, she indicated that she had a prior mammogram at [facility]. Breast Density: The breasts are almost entirely fatty. FINDINGS: No mass, architectural distortion or suspicious calcifications. IMPRESSION: No mammographic evidence of malignancy. No explanation for right breast pain. Follow up recommendation: Routine BI-RADS Category 1: Negative. A "normal" or negative report should not discourage follow up or biopsy of a clinically significant f inding. A written summary of these findings will be mailed to the patient. The patient will be entered into a mammography reporting system which will generate a reminder letter for the patient's next appointmen t at the appropriate interval. According to the [employer], yearly mammograms are recommended starting at age 40 and continuing as long as a woman is in good health. Breast MRI is recommended for women with an felisha roximately 20-25% or greater lifetime risk of breast cancer, including women with a strong family his tory of breast or ovarian cancer and women who have been treated for Hodgkin's disease. Signer Name: Aldo Allen MD Signed: 05/18/2019 3:13 PM Workstation Name: [id number]
== END 2019-05-18 11:25 | disposition home or self-care (01) ==
LOC: MAMMO 11:24
PROVIDERS: ATTEND Pathology Anatomic Pathology & Clinical Pathology
DX: N64.4 Mastodynia (principal)
CPT/HCPCS: 77066

== ENCOUNTER 2020-05-20 10:41 | Outpatient (CLI) | payer MEDICAID ==
--- NOTE | 2020-05-20 15:11 | Mammography Report ---
DIGITAL SCREENING MAMMOGRAM WITH CAD, 05/20/2020 INDICATION: Routine screening mammography. TECHNIQUE: Digital bilateral 2D mammography was obtained in the craniocaudal and mediolateral obliq ue projections. This examination was interpreted with the benefit of Computer-Aided Detection analysi s. COMPARISON: 05/18/2019. FINDINGS: Breast Density: The breasts are almost entirely fatty. There is no evidence of dominant mass, suspicious calcifications or architectural distortion in eithe r breast. IMPRESSION: Follow up recommendation: Routine yearly BI-RADS Category 1: Negative. A "normal" or negative report should not discourage follow up or biopsy of a clinically significant f inding. A written summary of these findings will be mailed to the patient. The patient will be entered into a mammography reporting system which will generate a reminder letter for the patient's next appointmen t at the appropriate interval. The [employer] recommends yearly mammograms starting at age 40 and continuing as l elissa as a woman is in good health. Breast MRI is recommended for women with an approximate 20-25% or greater lifetime risk of breast cancer, including women with a strong family history of breast or ova moni cancer or who have been treated for Hodgkin's disease. Signer Name: Blade Birmingham MD Signed: 05/20/2020 3:07 PM Workstation Name: [email or web address]
== END 2020-05-20 10:42 | disposition home or self-care (01) ==
LOC: MAMMO 10:41
PROVIDERS: ATTEND Nurse Practitioner Acute Care
DX: Z12.31 Encounter for screening mammogram for malignant neoplasm of breast (principal)
CPT/HCPCS: 77067

== ENCOUNTER 2021-04-09 12:33 | Emergency (ER) | payer MEDICAID ==
[2021-04-09 14:43] VITALS: BP 198/127
--- NOTE | 2021-04-09 14:54 | Emergency Department Report ---
Minor Respiratory - HPI Stated Complaint: BREATHING,COUGH OF BLOOD Time Seen by Provider: 04/09/21 13:10 ED Review of Systems ROS: Stated complaint: BREATHING,COUGH OF BLOOD Other details as noted in HPI Comment: All other systems reviewed and negative ED Past Medical Hx - Past Medical History Previous Medical History?: Yes Hx Hypertension: Yes Hx GERD: Yes Hx Asthma: Yes - Surgical History Past Surgical History?: Yes Hx Appendectomy: Yes Additional Surgical History: back surgery ovarian cyst. PARTIAL HYSTERECTOMY - Family History Family history: no significant - Social History Smoking Status: Never Smoker Substance Use Type: Alcohol - Medications Home Medications: Home Medications Medication Instructions Recorded Confirmed Last Taken Type ALBUTEROL NEB's [Proventil 0.083%] 2.5 mg IH TID PRN 04/25/13 04/25/13 04/25/13 20:00 History amLODIPine [Norvasc] 5 mg PO DAILY 04/25/13 04/25/13 04/25/13 20:00 History hydroCHLOROthiazide [Hctz] 12.5 mg PO QDAY 04/25/13 04/25/13 04/25/13 20:00 History Omeprazole 40 mg PO QDAY 30 Days #30 07/23/18 Unknown Rx capsule. Albuterol Mdi (or & Nicu Only) 1 puff IH Q4-6H PRN #1 inha 07/28/18 Unknown Rx [ProAir HFA Inhaler] Montelukast [Singulair] 10 mg PO QPM #14 tablet 07/28/18 Unknown Rx Cetirizine HCl [ZyrTEC] 10 mg PO DAILY #30 capsule 04/09/21 Unknown Rx Fluticasone [Flonase] 1 spray NS QDAY #1 bottle 04/09/21 Unknown Rx predniSONE [Deltasone] 20 mg PO DAILY #5 tablet 04/09/21 Unknown Rx Minor Respiratory Exam - Exam General: Vital signs noted. No distress. Alert and acting appropriately. HEENT: Yes Moist Mucous Membranes, No Pharyngeal Erythema, No Pharyngeal Exudates, No Rhinorrhea, No Conjuctival Injection, No Frontal Tenderness, No Maxillary Tenderness Ear: Neither TM Bulge, Neither TM Erythema, Neither EAC Pain, Neither EAC Discharge Neck: Yes Supple, No Adenopathy Lungs: Yes Good Air Exchange, No Wheezes, No [place], No Stridor, No Cough, No Labored Respirations, No Retractions, No Use of Accessory Muscles, No Other Abnormal Lung Sounds Heart: Yes Regular, No Murmur Abdomen: Yes Normal Bowel Sounds, No Tenderness, No Peritoneal Signs Skin: No Rash, No Edema Neurologic: Alert and oriented, no deficits. Musculoskeletal: Unremarkable. ED Course Vital Signs 04/09/21 14:42 Temperature 97.4 F L Pulse Rate 77 Respiratory 18 Rate Blood Pressure 198/127 [Left] O2 Sat by Pulse 97 Oximetry ED Medical Decision Making - Radiology Data Radiology results: report reviewed, image reviewed Critical care attestation.: If time is entered above; I have spent that time in minutes in the direct care of this critically ill patient, excluding procedure time. ED Disposition Clinical Impression: URI (upper respiratory infection), Hypertension Disposition: 01 HOME / SELF CARE / HOMELESS Is pt being admited?: No Does the pt Need Aspirin: No Condition: Stable Instructions: Upper Respiratory Infection, Adult, Hypertension (ED) Additional Instructions: meds as ordered today follow up with pcp in 48 hours for recheck continue home meds over the counter cough medication if needed monitor your blood pressure Referrals: RAQUEL TAM MD [Staff Physician] - 3-5 Days Time of Disposition: 14:54
--- NOTE | 2021-04-09 15:19 | XRay Report ---
CHEST 2 VIEWS INDICATION / CLINICAL INFORMATION: chest pain. FINDINGS: SUPPORT DEVICES: None. HEART / MEDIASTINUM: No significant abnormality. LUNGS / PLEURA: No significant pulmonary or pleural abnormality. No pneumothorax. ADDITIONAL FINDINGS: No significant additional findings. IMPRESSION: 1. No acute findings. Signer Name: Bobby Chase MD Signed: 04/09/2021 3:15 PM Workstation Name: [id number]
== END 2021-04-09 15:46 | disposition home or self-care (01) ==
LOC: ED 12:33
DX: J06.9 Acute upper respiratory infection, unspecified (principal); I10 Essential (primary) hypertension; J45.909 Unspecified asthma, uncomplicated; Z90.89 Acquired absence of other organs; F10.20 Alcohol dependence, uncomplicated
CPT/HCPCS: 71046; 99283